=== PATIENT | male | born 1955 | race American Indian/Alaskan Native ===

== ENCOUNTER 2019-05-28 08:31 | Emergency (ER) | payer OTHER, BC ==
[~2019-05-28] VITALS: Ht 177.8 cm; Wt 95.2 kg
== END 2019-05-28 10:37 | disposition home or self-care (01) ==
LOC: ED 08:31
DX: S83.92XA Sprain of unspecified site of left knee, initial encounter (principal); I10 Essential (primary) hypertension; X58.XXXA Exposure to other specified factors, initial encounter; Y99.0 Civilian activity done for income or pay
CPT/HCPCS: 73560; 99283-25

== ENCOUNTER 2022-06-19 06:10 | Emergency (ER) | payer BC, OTHER ==
[~2022-06-19] VITALS: Ht 177.8 cm; Wt 90.7 kg
[2022-06-19] MEDS ORDERED: LISINOPRIL40 MG PO (06:21)
[2022-06-19] MEDS ORDERED: HYDROCHLOROTH12.5 M1 PO (06:21)
== END 2022-06-19 06:51 | disposition home or self-care (01) ==
LOC: ED 06:10
DX: S20.211A Contusion of right front wall of thorax, initial encounter (principal); I10 Essential (primary) hypertension; Z79.899 Other long term (current) drug therapy; W06.XXXA Fall from bed, initial encounter
CPT/HCPCS: 71045; 71100; 71101; 99284-25

== ENCOUNTER 2023-02-08 05:45 | Day surgery (SDC) | payer BC, OTHER ==
[2023-02-05 15:31] VITALS: BP 112/71
[~2023-02-08] VITALS: Ht 177.8 cm; Wt 85.0 kg
[~2023-02-08 05:45] MED LIST: HYDROCHLOROTH12.5 M1 PO; HYDROCODON-ACE1 EA10 PO; LISINOPRIL40 MG PO
[2023-02-08 06:01] VITALS: BP 156/88
[2023-02-08] MEDS ORDERED: HYDROCODON-ACE1 EA10 PO (07:28)
--- NOTE | 2023-02-08 07:29 | NUR ---
02/08/23 0729 Beverly Pires PT TO PACU SLEEPY BUT AROUSABLE DENIES PAIN AND NAUSEA. ICE TO LT WRISRT.
[2023-02-08 07:46] VITALS: BP 138/81
--- NOTE | 2023-02-11 08:22 | OR ---
[facility] [address] [place] [place] [address] Signed DATE OF OPERATION: 02/08/2023 SURGEON: Genoveva Pires MD PREOPERATIVE DIAGNOSIS: Carpal tunnel syndrome, right. POSTOPERATIVE DIAGNOSIS: Carpal tunnel syndrome, right. PROCEDURE PERFORMED: Carpal tunnel release, right. 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 ANESTHESIA: Kyra block. TOURNIQUET TIME: 20 minutes. BRIEF HISTORY: Lilly is a 67-year-old gentleman with bilateral carpal tunnel. He had undergone prior left release with good results and wished to proceed with the right. Risks, benefits, and alternatives were discussed. He understands, wished to proceed. DESCRIPTION OF PROCEDURE: Once consent was obtained, he was taken to the operating room and left on the day surgery bed. The arm was prepped and draped in a standard sterile fashion after the Kyra block was established. The carpal tunnel was approached through a standard transverse incision at the distal wrist crease, it was carried through the skin and subcutaneous tissue. Palmaris longus was identified, retracted, and protected. The transverse carpal ligament was then identified with loupe magnification and dissected free of overlying soft tissue. Under loupe magnification, it was released proximally a centimeter and distally to the distal extent with care taken to protect the nerve throughout. The release was palpated using the [place] and found to be completely released. The wound was then copiously irrigated with normal saline, closed with 3-0 nylon and injected with 60 mL of 0.25% plain Marcaine. The wound was dressed with bacitracin, Adaptic, 4 x 8, and gauze. He Electronically Signed By: GENOVEVA PIRES MD 02/11/23 0822 PATIENT NAME: LILLY SEARS OPERATIVE REPORT DATE OF : 57 REPORT #: [id number] PHYSICIAN: GENOVEVA PIRES MD PCP: CHRISTINE GUERRIER REPORT IS CONFIDENTIAL AND NOT TO BE RELEASED WITHOUT AUTHORIZATION [facility] [address] [place] [address] [place], [place] [address] Signed tolerated the procedure well. All sponge, needle, and instrument counts were correct. Genoveva Pires MD BA/RITUL /[id number] Copies: ~ Electronically Signed By: GENOVEVA PIRES MD 02/11/23 0822 PATIENT NAME: LILLY SEARS OPERATIVE REPORT DATE OF : 57 REPORT #: [id number] PHYSICIAN: GENOVEVA PIRES MD PCP: SIEDERS,CHRISTINE REPORT IS CONFIDENTIAL AND NOT TO BE RELEASED WITHOUT AUTHORIZATION
== END 2023-02-08 07:56 | disposition home or self-care (01) ==
LOC: DS 05:45
PROVIDERS: ATTEND Specialist
PROC: 01N40ZZ Release Ulnar Nerve, Open Approach (ICD-10-PCS; principal; 2023-02-08 07:00)
DX: G56.01 Carpal tunnel syndrome, right upper limb (principal); I10 Essential (primary) hypertension
CPT/HCPCS: 01810; J0690; J2250; J2405; J2704; J7121